=== PATIENT | female | born 1950 | race Caucasian/White ===

== ENCOUNTER 2018-09-21 07:18 | Observation (INO) | payer MEDICARE ==
[2018-09-21 07:41] LABS: ABSOLUTE EOSINOPHILS # (AUTO) 0.1 10^3/uL (0.0-0.6); ABSOLUTE LYMPHOCYTES (AUTO) 1.4 10^3/uL (0.5-4.7); ABSOLUTE MONOCYTES (AUTO) 0.8 10^3/uL (0.1-1.4); ABSOLUTE NEUT (AUTO) 5.5 10^3/uL (1.7-8.2); BASOPHILS % (AUTO) 0.3 % (0-2); EOSINOPHILS % (AUTO) 1.9 % (0-6); HEMOGLOBIN 13.9 g/dL (12.0-15.5); LYMPHOCYTES % (AUTO) 18.2 % (13-45); MEAN CORPUSCULAR HEMOGLOBIN 31.3 pg (27.0-33.4); MEAN CORPUSCULAR HGB CONC 33.8 g/dL (32.0-36.0); MEAN CORPUSCULAR VOLUME 93 fl (80-97); MONOCYTES % (AUTO) 9.7 % (3-13); PLATELET COUNT 192 10^3/uL (150-450); RED BLOOD COUNT 4.42 10^6/uL (3.72-5.28); RED CELL DISTRIBUTION WIDTH 14.3 % (11.5-14.0); SEGMENTED NEUTROPHILS % (AUTO) 69.9 % (42-78); TOTAL CELLS COUNTED % (AUTO) 100 %; WHITE BLOOD COUNT 7.8 10^3/uL (4.0-10.5)
[2018-09-21] MEDS ORDERED: NITROGLYCERIN 2% OINTMENT 1 GM PACKET TP ONE (07:42)
[2018-09-21] MEDS ORDERED: ONDANSETRON HCL INJ/PF 4 MG/2 ML SDV IV ONE (07:44)
[2018-09-21] MEDS ORDERED: MORPHINE SULFATE 10 MG/ML INJ IV ONE ×2 (07:44→08:23)
[2018-09-21 07:50] LABS: ALANINE AMINOTRANSFERASE 19 U/L (9-52); ALBUMIN 4.4 g/dL (3.5-5.0); ALKALINE PHOSPHATASE 88 U/L (38-126); ANION GAP 12 (5-19); ASPARTATE AMINO TRANSFERASE 37 U/L (14-36); BILIRUBIN,DIRECT 0.3 mg/dL (0.0-0.4); BILIRUBIN,TOTAL 0.6 mg/dL (0.2-1.3); BLOOD UREA NITROGEN 22 mg/dL (7-20); CALCIUM 9.2 mg/dL (8.4-10.2); CARBON DIOXIDE 28 mmol/L (22-30); CHLORIDE 103 mmol/L (98-107); CREATINE KINASE 100 U/L (30-135); GLUCOSE 94 mg/dL (75-110); POTASSIUM 4.8 mmol/L (3.6-5.0); SODIUM 143.4 mmol/L (137-145); TOTAL PROTEIN 7.5 g/dL (6.3-8.2)
--- NOTE | 2018-09-21 07:52 | RADIOLOGY REPORT (SQ) ---
EXAM DESCRIPTION: XR CHEST 1 VIEW COMPLETED DATE/TME: 09/21/2018 07:20 CLINICAL HISTORY: 67 years Female, bed 4 cp COMPARISON: None. NUMBER OF VIEWS/TECHNIQUE: 1/AP FINDINGS: Increased lung volume, clear parenchyma, normal cardiac silhouette, and intact bony thorax. IMPRESSION: No acute cardiopulmonary findings.
--- NOTE | 2018-09-21 07:54 | ER Document Report ---
ED Cardiac - General Chief Complaint: Chest Pain Stated Complaint: CHEST PAIN Time Seen by Provider: 09/21/18 07:28 Mode of Arrival: Medic Information source: Patient, Relative Notes: Patient is a 67-year-old female comes to the emergency room via EMS with a complaint of chest pain and shortness of breath. Patient states that last night when she went to bed she had a little discomfort in her chest but did not think much about it. Throughout the night chest pain/discomfort kept an uneasy feeling and progressed to where it went from a chest discomfort to a stabbing pain early this morning with radiation to her back and down her left arm. She attempted nitro sublingual x4 with no relief of chest pain but it did make her shortness of breath better. Pertinent recent history is that patient lives in [place] and they just drove down to [facility] on Wednesday of this past week. She states that they did get out of the car 3 or 4 times to walk around. Pertinent medical past is extensive for cardiac history to include 6 cardiac stent placements. Last stent placement was approximately 2009. Further interesting medical history shows that she has had a pulmonary embolism in her past. Per patient and the history of PE was many years ago where she had been on Coumadin for a long time and was taken off. They cannot remember exactly when but it was multiple years ago. states that she has had several episodes of this type of presentation in the past up in [place] and they can never find any cause with the exception of unstable angina. Currently patient has discomfort with movement. And she also has increased chest pain with movement. Currently on a 0-5 scale patient rates her pain as a 5. - HPI Patient complains to provider of: Chest pain, Shortness of breath Was the onset of pain: Gradual When did pain begin: Late last night Is the pain a: Chronic problem Chest pain location: Substernal, Back, Pleuritic Quality of pain: Constant, Severe, Stabbing Chest pain radiation location: Left arm, Left shoulder, Back Severity now: Severe Severity at worst: Severe Pain level currently: 5 Chest pain precipitating factors: At Rest Cardiac risk factors: Hypertension, Hx IA Positive cardiac history: Yes Associated symptoms: Back pain, Shortness of breath Exacerbated by: Sitting, Standing, Activity, Deep breaths, Torso movement Relieved by: Nothing Similar symptoms previously: Yes Recently seen / treated by doctor: No - Related Data Allergies/Adverse Reactions: No Known Allergies Allergy (Verified 09/21/18 07:45) Past Medical History - General Information source: Patient, Relative - Social History Smoking Status: Former Smoker Cigarette use (# per day): No Chew tobacco use (# tins/day): No Smoking Education Provided: No Frequency of alcohol use: None Drug Abuse: None Family History: None, Reviewed & Not Pertinent - Past Medical History Cardiac Medical History: Reports: Hx Heart Attack Past Surgical History: Reports: Hx Cardiac Surgery - 6 stents, Hx Orthopedic Surgery - r knee, Hx Tubal Ligation Review of Systems - Review of Systems Constitutional: No symptoms reported EENT: No symptoms reported Cardiovascular: See HPI, Chest pain Respiratory: See HPI, Hurts to breathe, Short of breath, Wheezing Gastrointestinal: No symptoms reported Genitourinary: No symptoms reported Female Genitourinary: No symptoms reported Musculoskeletal: No symptoms reported Skin: No symptoms reported Hematologic/Lymphatic: No symptoms reported Neurological/Psychological: No symptoms reported -: Yes All other systems reviewed and negative Physical Exam - Vital signs Vitals: Pulse Ox 97 09/21/18 07:20 Interpretation: Hypertensive - As of dictation vital signs had not been placed in computer yet but they are as follows temp 98.5, pulse of 80, blood pressure 149/81, and respiratory rate 14, satting 100% on room air. - Notes Notes: PHYSICAL EXAMINATION: GENERAL: Patient is a well-nourished well-developed 67-year-old female who appears very uncomfortable on physical exam today. She is having a hard time finding a position of comfort. Any movement causes increased amount of chest discomfort and pain. HEAD: Atraumatic, normocephalic. EYES: Pupils equal round and reactive to light, extraocular movements intact, conjunctiva are normal. ENT: Nares patent, oropharynx clear without exudates. Mucous membranes are marginally dry. NECK: Normal range of motion, supple without lymphadenopathy LUNGS: auscultation patient's lungs show she has bilateral breath sounds breath sounds are decreased throughout with right side being clear and left side having inspiratory wheeze noted very faintly. No rales or rhonchi are noted on examination. Palpation of patient's chest shows some mildly reproducible discomfort. Patient does not have any increase in pain or discomfort with resistance of upper extremities. HEART: Regular rate and rhythm without murmurs ABDOMEN: Soft, nontender, nondistended abdomen. No guarding, no rebound. No masses appreciated. Female : deferred Musculoskeletal: Normal range of motion, no pitting or edema. No cyanosis. NEUROLOGICAL: Normal speech. Normal sensory, motor exams, gait not tested secondary to the shortness of breath and discomfort PSYCH: Normal mood, normal affect. SKIN: Warm, Dry, normal turgor, no rashes or lesions noted. - Cardiovascular Rhythm: Regular Heart sounds: Normal auscultation Murmur: No Pulses: Normal: Brachial, Radial, Carotid, Femoral, Dorsalis pedis Normal capillary refill: Yes Course - Re-evaluation Re-evalutation: 09/21/18 11:28 Patient stated ER has been pretty much uneventful. We were able to get her pain level down to about a 3 with Nitropaste and with some morphine her CTA of the chest was negative for any acute problems her first troponin was negative and second troponin was just drawn. I have talked to Dr. Roa and he is excepted patient's for admission. - Vital Signs Vital signs: Temp Pulse Resp BP Pulse Ox 97.8 F 12 159/96 H 96 09/21/18 07:27 09/21/18 10:00 09/21/18 08:23 09/21/18 10:00 - Laboratory Result Diagrams: 09/21/18 07:27 09/21/18 07:27 Laboratory results interpreted by me: 09/21/18 09/21/18 09/21/18 07:27 07:27 07:27 RDW 14.3 H D-Dimer 0.91 H BUN 22 H AST 37 H Urine Blood 09/21/18 09:11 RDW D-Dimer BUN AST Urine Blood SMALL H - EKG Interpretation by Me Rate: Normal Rhythm: NSR When compared to previous EKG there are: No significant change - Transfer of Care Notes: 09/21/18 08:38 Patient's PERC score for PE is 2, patient's well score for PE is 9, patient's heart score is 5 Discharge - Discharge Clinical Impression: Chest pain Qualifiers: Chest pain type: unspecified Qualified Code(s): R07.9 - Chest pain, unspecified Condition: Stable Disposition: ADMITTED OBSERVATION Admitting Provider: Hospitalist Unit Admitted: Telemetry
[2018-09-21 08:01] LABS: CREATINE KINASE MB 1.43 ng/mL (<4.55)
[2018-09-21 08:02] LABS: TROPONIN I < 0.012 ng/mL
--- NOTE | 2018-09-21 08:15 | EKG REPORT ---
SEVERITY:- NORMAL ECG - SINUS RHYTHM : Confirmed by: Amber Mauro MD 21-Sep-2018 08:15:06
--- NOTE | 2018-09-21 09:33 | RADIOLOGY REPORT (SQ) ---
EXAM DESCRIPTION: CTA CHEST COMPLETED DATE/TIME: 09/21/2018 9:15 am REASON FOR STUDY: Positive d-dimer with a history of PE many years a COMPARISON: Chest film 09/21/2018, 01/25/2014, 09/19/2010 TECHNIQUE: CT scan of the chest performed using helical scanning technique with dynamic intravenous contrast injection. Images reviewed with lung, soft tissue and bone windows. Reconstructed coronal and sagittal MPR images reviewed. Additional 3 dimensional post-processing performed to develop Maximal Intensity Projection images (MO P). All images stored on PACS. All CT scanners at this facility use dose modulation, iterative reconstruction, and/or weight based d osing when appropriate to reduce radiation dose to as low as reasonably achievable (ALARA). [facility]: Dose Right [facility]: CareDose [facility]: Dose Right [facility]: Teradose 4D [facility]: UtiliData CONTRAST TYPE AND DOSE: contrast/concentration: Isovue 350.00 mg/ml; Total Contrast Delivered: 71.0 ml; Total Saline Delivered: 84.9 ml Contrast bolus optimized for the pulmonary arteries. Not diagnostic for the aorta. RENAL FUNCTION: GFR > 60. RADIATION DOSE: CT Rad equipment meets quality standard of care and radiation dose reduction techniq ues were employed. CTDIvol: 14.3 - 16.5 mGy. DLP: 530 mGy-cm. . LIMITATIONS: None. FINDINGS: LUNGS AND PLEURA: No acute infiltrates. No pleural effusion or pneumothorax. 5 to 6 mm s mooth round noncalcified subpleural nodule posterior left lower lobe likely a noncalcified granuloma, best shown on axial image 74/128. AORTA AND GREAT VESSELS: No aneurysm. Contrast bolus not optimized for the aorta. HEART: No pericardial effusion. Moderate to marked coronary artery calcifications. PULMONARY ARTERIES: No emboli visualized in the main pulmonary arteries or the segmental branches. HILAR AND MEDIASTINAL STRUCTURES: No identified masses or abnormal nodes. HARDWARE: None in the chest. UPPER ABDOMEN: No significant findings. Limited exam. THYROID AND OTHER SOFT TISSUES: No masses. No adenopathy. BONES: No acute or significant finding. 3D MIPS: Confirm above findings. OTHER: No other significant finding. IMPRESSION: No CT angio evidence of acute pulmonary emboli. No acute infiltrates. No pleural effus ion. Moderate to heavy coronary artery calcifications. Incidental 5 to 6 mm nodule posterior left lower lobe, likely benign COMMENT: FLEISCHNER CRITERIA FOR FOLLOW-UP OF PULMONARY NODULES Incidentally detected new nodules in persons 35 or older. HIGH RISK: History of smoking or other known risk factors. <6mm single solid nodule: LOW RISK: no routine followup. HIGH RISK: optional CT 12 mo. Quality ID # [id number]: Final reports with documentation of one or more dose reduction techniques (e.g., Au tomated exposure control, adjustment of the mA and/or kV according to patient size, use of iterative reconstruction technique) TECHNICAL DOCUMENTATION: JOB ID: [id number] [employer]- All Rights Reserved Reading location - IP/workstation name: [facility]
[2018-09-21 09:39] LABS: APPEARANCE,URINE CLEAR; BILIRUBIN,URINE NEGATIVE (NEGATIVE); COLOR,URINE YELLOW; GLUCOSE, URINE NEGATIVE (NEGATIVE); KETONES,URINE NEGATIVE (NEGATIVE); LEUKOCYTE ESTERASE,URINE NEGATIVE (NEGATIVE); NITRITE,URINE NEGATIVE (NEGATIVE); PROTEIN,URINE NEGATIVE (NEGATIVE); URINE SPECIFIC GRAVITY 1.027; UROBILINOGEN,URINE NEGATIVE mg/dL (<2.0)
[2018-09-21 10:11] LABS: URINE AMPHETAMINES SCREEN NEGATIVE; URINE BARBITURATES SCREEN NEGATIVE; URINE BENZODIAZEPINES SCREEN NEGATIVE; URINE COCAINE SCREEN NEGATIVE; URINE MARIJUANA (THC) SCREEN NEGATIVE; URINE METHADONE SCREEN NEGATIVE; URINE PHENCYCLIDINE SCREEN NEGATIVE
[2018-09-21] MEDS ORDERED: MORPHINE SULFATE 10 MG/ML INJ IV PRN ×2 (12:36→16:48)
[2018-09-21] MEDS ORDERED: TEMAZEPAM 15 MG CAPSULE PO PRN (12:36)
[2018-09-21] MEDS ORDERED: ALBUTEROL SULFATE HFA (90 MCG/PUFF) 200 PUFF/8.5 GM MDI IH PRN (12:54)
[2018-09-21] MEDS ORDERED: HYDROMORPHONE HCL INJ/PF 2 MG/ML AMPULE IV ONE (13:14)
--- NOTE | 2018-09-21 13:22 | PDOC H&P ---
History of Present Illness Admission Date/PCP: 09/21/18 12:17 Patient complains of: chest pain History of Present Illness: NORMAN VALDERRAMA is a 67 year old female came to the emergency room this morning, with complaints of chest pain since yesterday. Chest pain was mild yesterday patient tried to ignore it but today chest pain become unbearable and left-sided chest pain radiating to the back and left arm, also associated with shortness of breath and nausea patient decided to came to the emergency room for further evaluation. She is Describing the chest pain as stabbing pain. Has these episodes before. She had history of coronary artery disease with 6 stents placement last sent stent was placed in 2009 as per the patient. She is complaining of slight headache, denies any dizziness denies any sweating or diaphoresis. Patient said she got aspirin and nitroglycerin in the ambulance on the way to the hospital. Patient was given morphine for pain in the emergency room at the time of my examination patient is complaining of chest pain of 8 x 10. Past Medical History Cardiac Medical History: Reports: Coronary Artery Disease, Myocardial Infarction , Hyperlipidema, Hypertension, Pulmonary Embolism, Other - Patient has coronary artery disease with 6 stents placement last stent was EENT Medical History: Reports: Nose - Patient complaining of seasonal allergies with rhinorrhea. Neurological Medical History: Reports: None Endocrine Medical History: Reports: None Malignancy Medical History: Reports: None GI Medical History: Reports: Gastroesophageal Reflux Disease Psychiatric Medical History: Reports: Depression Hematology: Reports: Anemia Infectious Medical History: Reports: None Past Surgical History Past Surgical History: Reports: Hip Replacement, Knee Replacement, Orthopedic Surgery - r knee, Tubal Ligation Social History Smoking Status: Former Smoker Family History Family History: None, Reviewed & Not Pertinent, Other - with heart problems into the age of 50. Parental Family History Reviewed: Yes Children Family History Reviewed: No Sibling(s) Family History Reviewed.: No Medication/Allergy Home Medications: Albuterol Sulfate [Proair HFA Inhalation Aerosol 8.5 gm MDI] 2 puff IH Q4H PRN # 1 mdi 01/25/14 Aspirin [Aspirin 81 mg Chewable Tablet] 81 mg PO DAILY 01/25/14 Clopidogrel Bisulfate [Plavix 75 mg Tablet] 75 mg PO DAILY 01/25/14 Inhaler, Assist Devices [AerHipClubamber Mv] 1 each MC ASDIR PRN #0 inhaler Metoprolol Succinate [Toprol Xl] 50 mg PO DAILY 01/25/14 Multivitamin [Multi Vitamin Daily] 1 each PO DAILY 01/25/14 Rosuvastatin Calcium [Crestor 20 mg Tablet] 20 mg PO HSP 01/25/14 Duloxetine HCl 60 mg PO 09/21/18 Isosorbide Mononitrate [Imdur 30 mg Tablet.er] 30 mg PO 09/21/18 Lisinopril [Prinivil 5 mg Tablet] 5 mg PO DAILY 09/21/18 Pantoprazole Sodium [Protonix] 40 mg PO HSP PRN 09/21/18 Potassium Chloride [K-Tab ER] 8 meq PO 09/21/18 Allergies/Adverse Reactions: No Known Allergies Allergy (Verified 09/21/18 07:45) Review of Systems Constitutional: ABSENT: chills, fever(s), headache(s), weight gain, weight loss Cardiovascular: PRESENT: chest pain Respiratory: PRESENT: other - Shortness of breath during the episode of chest pain Gastrointestinal: PRESENT: heartburn Genitourinary: ABSENT: dysuria, hematuria Musculoskeletal: ABSENT: joint swelling Neurological: ABSENT: abnormal gait, abnormal speech, confusion, dizziness, focal weakness, syncope Psychiatric: ABSENT: anxiety, depression, homidical ideation, suicidal ideation Endocrine: ABSENT: cold intolerance, heat intolerance, polydipsia, polyuria Hematologic/Lymphatic: ABSENT: easy bleeding, easy bruising Physical Exam Vital Signs: Temp Pulse Resp BP Pulse Ox 97.8 F 17 133/118 H 96 09/21/18 07:27 09/21/18 12:01 09/21/18 12:01 09/21/18 12:01 General appearance: PRESENT: severe distress Head exam: PRESENT: atraumatic Eye exam: PRESENT: PERRLA Neck exam: ABSENT: carotid bruit, JVD, lymphadenopathy, thyromegaly Respiratory exam: PRESENT: clear to auscultation ashley. ABSENT: rales, rhonchi, wheezes Cardiovascular exam: PRESENT: RRR. ABSENT: diastolic murmur, rubs, systolic murmur Pulses: PRESENT: normal dorsalis pedis pul GI/Abdominal exam: PRESENT: normal bowel sounds, soft. ABSENT: distended, guarding, mass, organolmegaly, rebound, tenderness Neurological exam: PRESENT: alert, awake, oriented to person, oriented to place , oriented to time, oriented to situation, CN II-XII grossly intact. ABSENT: motor sensory deficit Psychiatric exam: PRESENT: appropriate affect, normal mood. ABSENT: homicidal ideation, suicidal ideation Skin exam: PRESENT: dry, intact, warm. ABSENT: cyanosis, rash Results Impressions: Chest X-Ray 09/21/18 07:20 IMPRESSION: No acute cardiopulmonary findings. Chest/Abdomen CTA 09/21/18 08:40 IMPRESSION: No CT angio evidence of acute pulmonary emboli. No acute infiltrates. No pleural effusion. Moderate to heavy coronary artery calcifications. Incidental 5 to 6 mm nodule posterior left lower lobe, likely benign Assessment & Plan - Diagnosis (1) Chest pain Qualifiers: Chest pain type: unspecified Qualified Code(s): R07.9 - Chest pain, unspecified Is this a current diagnosis for this admission?: Yes Plan: 09/21/2018 from she has history of coronary artery disease with 6 stent placements came in with chest pain. Initial EKG troponins are negative. He is in considerable pain. We will do cardiac enzymes x3 along with EKGs and acute HI core measures were implemented she is also going to receive morphine 1 mg IV every 4 as needed for pain. He is she is on prophylaxis with Lovenox 40 mg subcu daily. Echocardiogram was requested. Allergy consult was requested. The lipid profile was ordered for morning. PRN nitroglycerin was ordered for chest pain. Tarted on aspirin 325 mg p.o. daily. I reviewed the current EKG which was normal sinus rhythm. Patient was started on oxygen 2 L nasal cannula. Patient was started on atorvastatin 10 mg p.o. nightly as part of acute HI core measures. Patient was placed in observation and telemetry be going to continue to monitor her cardiac rhythm and if the cardiac enzymes are negative and EKG was normal we have plans to discharge her home tomorrow. (2) Presence of stent in coronary artery in patient with coronary artery disease Is this a current diagnosis for this admission?: Yes Plan: 09/21/2018-patient has history of coronary artery disease status post stent placement last had stent was placed in 2009. Patient was on Plavix at home we have plan to continue the Plavix while she was in the hospital (3) Pulmonary embolism Is this a current diagnosis for this admission?: Yes Plan: 09/21/2018-patient has history of pulmonary embolism in the past. Not on any anticoagulation at this time except Plavix. The CT of the chest was done in the ER which was negative for PE. (4) Depression Qualifiers: Depression Type: unspecified Qualified Code(s): F32.9 - Major depressive disorder, single episode, unspecified Is this a current diagnosis for this admission?: Yes Plan: 11/21/2017-patient has history of chronic depression, she is on duloxetine 60 mg p.o. daily at home we have the plan is to continue the medication while she was in the hospital. (5) Hypertension Qualifiers: Hypertension type: essential hypertension Qualified Code(s): I10 - Essential (primary) hypertension Is this a current diagnosis for this admission?: Yes Plan: 09/21/2018.. Patient is taking lisinopril 5 mg p.o. daily and metoprolol 50 mg p.o. daily at home we how to continue with plans to continue the present medication while she was in the hospital. (6) GERD (gastroesophageal reflux disease) Qualifiers: Esophagitis presence: esophagitis presence not specified Qualified Code(s) : K21.9 - Gastro-esophageal reflux disease without esophagitis Is this a current diagnosis for this admission?: Yes Plan: 09/21/2018-patient was placed on famotidine 20 mg p.o. daily while she was in the hospital. - Time Time Spent: 30 to 50 Minutes Medications reviewed and adjusted accordingly: Yes Anticipated discharge: Home
[2018-09-21] MEDS ORDERED: ISOSORBIDE MONONITRATE 30 MG TAB.ER.24H PO ONE (13:45)
[2018-09-21] MEDS ORDERED: ENOXAPARIN SODIUM INJ 40 MG/0.4 ML DISP.SYRIN SUBCUT ONE (14:00)
[2018-09-21] MEDS: NITROGLYCERIN 0.4 MG/TAB 25 TAB/BOTTLE SL PRN ×3 (14:18→16:07)
[2018-09-21] MEDS ORDERED: METOPROLOL SUCCINATE 50 MG TAB.SR.24H PO ONE (15:15)
[2018-09-21] MEDS ORDERED: DULOXETINE HCL 30 MG CAPSULE.DR PO ONE (15:15)
[2018-09-21] MEDS ORDERED: CLOPIDOGREL BISULFATE 75 MG TABLET PO ONE (15:15)
[2018-09-21] MEDS ORDERED: LISINOPRIL 5 MG TABLET PO ONE (15:15)
[2018-09-21] MEDS ORDERED: ASPIRIN 325 MG TABLET, ENT COATED PO ONE (15:15)
--- NOTE | 2018-09-21 15:43 | EKG REPORT ---
SEVERITY:- NORMAL ECG - SINUS RHYTHM : Confirmed by: Amber Mauro MD 21-Sep-2018 15:43:28
--- NOTE | 2018-09-21 16:54 | XCELERA REPORT ---
[address] [address] Transthoracic Echocardiogram Report Name: NORMAN VALDERRAMA Age: 67 yrs Gender: Female : 1950 Patient Status: Inpatient Patient Location: [address] [place], [place] [address] Study Date: 09/21/2018 03:29 PM Procedure: A two-dimensional transthoracic echocardiogram with color flow and Doppler was performed. The study was technically difficult with many images being suboptimal in quality. The study was technically limited with all images being suboptimal in quality. Reason For Study: LV Function, size, wall thickness,Valve Function History: Chest pain. Ordering Physician: WILLIAN ABRAHAM Performed By: Zenobia Hwang Interpretation Summary The left ventricle is normal in size. There is normal left ventricular wall thickness. LV EF is > than 60% Left ventricular systolic function is normal. Doppler measurements suggest impaired left ventricular relaxation, which is associated with grade I/IV or mild diastolic dysfunction Probably nodefenite regional wall motion abnormality. There is no thrombus. The right ventricle is not well visualized secondary to technical limitations The right atrium is normal. The left atrial size is normal. There is no mitral valve stenosis. There is a mild to moderate amount of tricuspid regurgitation There is mild pulmonary hypertension by echo RVSP is 45 mm of Hg , with RA mean of 10. There is no pericardial effusion. MMode/2D Measurements & Calculations IVSd: 0.67 cm LVIDd: 5.7 cm FS: 37.2 % Ao root diam: 2.6 cm LVIDs: 3.6 cm EDV(Teich): 157.1 ml Ao root area: 5.2 cm2 LVPWd: 0.83 cm ESV(Teich): 52.7 ml EF(Teich): 66.4 % Doppler Measurements & Calculations MV E max hiren: MV dec slope: Ao V2 max: LV V1 max P.4 cm/sec 175.6 cm/sec 4.4 mmHg MV A max hiren: 352.3 cm/sec2 Ao max PG: LV V1 max: 86.5 cm/sec MV dec time: 0.21 sec12.3 mmHg 104.3 cm/sec MV E/A: 0.86 PA V2 max: TR max hiren: 104.2 cm/sec 296.7 cm/sec PA max P.3 mmHg TR max P.2 mmHg Left Ventricle The left ventricle is normal in size. There is normal left ventricular wall thickness. LV EF is > than 60%. Left ventricular systolic function is normal. Doppler measurements suggest impaired left ventricular relaxation, which is associated with grade I/IV or mild diastolic dysfunction. Probably nodefenite regional wall motion abnormality. There is no thrombus. Right Ventricle The right ventricle is not well visualized secondary to technical limitations. Atria The right atrium is normal. The left atrial size is normal. Mitral Valve The mitral valve is not well visualized. There is no mitral valve stenosis. There is no mitral regurgitation noted. Aortic Valve There is no aortic valve stenosis. There is no LVOT obstruction. No aortic regurgitation is present. Tricuspid Valve There is no tricuspid stenosis. There is a mild to moderate amount of tricuspid regurgitation. There is mild pulmonary hypertension by echo. RVSP is 45 mm of Hg , with RA mean of 10. Pulmonic Valve The pulmonic valve is not well visualized. Great Vessels The aortic root is not well visualized. Effusions There is no pericardial effusion. : WILLIAN ABRAHAM > Amber Mauro
[2018-09-21] MEDS: DOCUSATE SODIUM 100 MG CAPSULE PO SCH (17:08)
[2018-09-21] MEDS ORDERED: FAMOTIDINE 20 MG TABLET PO ONE (17:15)
[2018-09-21] MEDS ORDERED: LORAZEPAM INJ 2 MG/1 ML VIAL IV PRN (17:42)
[2018-09-21] MEDS ORDERED: METOCLOPRAMIDE HCL ORAL SOLN 10 MG/10 ML UDCUP PO PRN (17:43)
[2018-09-21] MEDS ORDERED: LIDOCAINE 2% VISCOUS SOLN 20 ML UDCUP PO PRN (17:43)
[2018-09-21] MEDS ORDERED: MAG HYDROX/AL HYDROX/SIMETH SUSP 30 ML UDCUP PO PRN (17:43)
[2018-09-21] MEDS ORDERED: BACLOFEN 10 MG TABLET PO PRN (17:44)
[2018-09-21] MEDS ORDERED: IBUPROFEN 400 MG TABLET PO PRN (17:44)
[2018-09-21 18:38] LABS: CREATINE KINASE MB 1.08 ng/mL (<4.55)
[2018-09-21 18:43] LABS: TROPONIN I < 0.012 ng/mL
[2018-09-21] MEDS ORDERED: ENOXAPARIN SODIUM INJ 80 MG/0.8 ML DISP.SYRIN SUBCUT SCH (19:00)
[2018-09-21] MEDS: FAMOTIDINE 20 MG TABLET PO SCH (21:58)
[2018-09-21] MEDS: POTASSIUM CHLORIDE 20 MEQ/15 ML UDCUP PO SCH (21:59)
[2018-09-21] MEDS: ENOXAPARIN SODIUM INJ 80 MG/0.8 ML DISP.SYRIN SUBCUT SCH (21:59)
[2018-09-21] MEDS ORDERED: ATORVASTATIN CALCIUM 10 MG TABLET PO SCH (22:00)
[2018-09-22 00:30] LABS: CREATINE KINASE MB 0.62 ng/mL (<4.55)
[2018-09-22] MEDS ORDERED: NORMAL SALINE 1000 ML 1,000 ML IV ONE ×2 (00:30→02:00)
[2018-09-22 00:33] LABS: TROPONIN I < 0.012 ng/mL
[2018-09-22 06:57] LABS: ABSOLUTE EOSINOPHILS # (AUTO) 0.1 10^3/uL (0.0-0.6); ABSOLUTE LYMPHOCYTES (AUTO) 1.1 10^3/uL (0.5-4.7); ABSOLUTE MONOCYTES (AUTO) 0.9 10^3/uL (0.1-1.4); ABSOLUTE NEUT (AUTO) 4.3 10^3/uL (1.7-8.2); BASOPHILS % (AUTO) 0.2 % (0-2); EOSINOPHILS % (AUTO) 1.6 % (0-6); HEMATOCRIT 34.6 % (36.0-47.0); LYMPHOCYTES % (AUTO) 17.3 % (13-45); MEAN CORPUSCULAR HEMOGLOBIN 31.2 pg (27.0-33.4); MEAN CORPUSCULAR HGB CONC 33.7 g/dL (32.0-36.0); MEAN CORPUSCULAR VOLUME 93 fl (80-97); MONOCYTES % (AUTO) 14.3 % (3-13); PLATELET COUNT 163 10^3/uL (150-450); RED BLOOD COUNT 3.73 10^6/uL (3.72-5.28); RED CELL DISTRIBUTION WIDTH 14.3 % (11.5-14.0); SEGMENTED NEUTROPHILS % (AUTO) 66.6 % (42-78); TOTAL CELLS COUNTED % (AUTO) 100 %; WHITE BLOOD COUNT 6.4 10^3/uL (4.0-10.5)
[2018-09-22 06:58] LABS: HEMOGLOBIN 11.6 g/dL (12.0-15.5)
[2018-09-22 07:10] LABS: CHOLESTEROL 101.52 mg/dL (0-200); TRIGLYCERIDES 99 mg/dL (<150)
[2018-09-22 07:21] LABS: DIRECT LDL 55 mg/dL (<100)
[2018-09-22 07:22] LABS: CREATINE KINASE MB 0.52 ng/mL (<4.55)
[2018-09-22 07:27] LABS: TROPONIN I < 0.012 ng/mL
[2018-09-22 09:17] VITALS: BP 96/55
[2018-09-22] MEDS: DOCUSATE SODIUM 100 MG CAPSULE PO SCH (09:26)
[2018-09-22] MEDS: FAMOTIDINE 20 MG TABLET PO SCH (09:26)
[2018-09-22] MEDS: POTASSIUM CHLORIDE 20 MEQ/15 ML UDCUP PO SCH (09:27)
[2018-09-22] MEDS: ENOXAPARIN SODIUM INJ 80 MG/0.8 ML DISP.SYRIN SUBCUT SCH (09:29)
--- NOTE | 2018-09-22 09:37 | EKG REPORT ---
SEVERITY:- NORMAL ECG - SINUS RHYTHM : Confirmed by: Amber Mauro MD 22-Sep-2018 09:36:57
--- NOTE | 2018-09-22 09:38 | EKG REPORT ---
SEVERITY:- NORMAL ECG - SINUS RHYTHM : Confirmed by: Amber Mauro MD 22-Sep-2018 09:37:03
[2018-09-22] MEDS ORDERED: MULTIVITAMIN TABLET PO SCH (10:00)
[2018-09-22] MEDS ORDERED: DULOXETINE HCL 30 MG CAPSULE.DR PO SCH (10:00)
[2018-09-22] MEDS ORDERED: ENOXAPARIN SODIUM INJ 40 MG/0.4 ML DISP.SYRIN SUBCUT SCH (10:00)
[2018-09-22] MEDS ORDERED: METOPROLOL SUCCINATE 50 MG TAB.SR.24H PO SCH (10:00)
[2018-09-22] MEDS ORDERED: LISINOPRIL 5 MG TABLET PO SCH ×2 (10:00→11:29)
[2018-09-22] MEDS ORDERED: CLOPIDOGREL BISULFATE 75 MG TABLET PO SCH (10:00)
[2018-09-22] MEDS ORDERED: ASPIRIN 325 MG TABLET, ENT COATED PO SCH (10:00)
--- NOTE | 2018-09-22 13:07 | PDOC DISCHARGE SUMMARY ---
General - Admit/Disc Date/PCP Admission Date/Primary Care Provider: 09/21/18 12:17 Discharge Date: 09/22/18 - Discharge Diagnosis (1) Atypical chest pain Is this a current diagnosis for this admission?: Yes Summary: Has strong cardiac history with 6 stents; workup here was negative troponins * 5. EKG was negative for acute abnormality. - Pain better controlled with morphine. - On day of discharge, patient states CP resolved. - TTE: preserved EF - Seen by cardiology today (Dr. 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 Not on AC; only Plavix - CTA chest this admission was negative for PE. - Additional Information Resuscitation Status: Full Code Discharge Diet: Cardiac Discharge Activity: Activity As Tolerated Prescriptions: Isosorbide Mononitrate [Imdur 30 mg Tablet.er] 60 mg PO DAILY #60 tab.er.24h Home Medications: Albuterol Sulfate [Proair HFA Inhalation Aerosol 8.5 gm MDI] 2 puff IH Q4H PRN # 1 mdi 01/25/14 Clopidogrel Bisulfate [Plavix 75 mg Tablet] 75 mg PO DAILY 01/25/14 Metoprolol Succinate [Toprol Xl] 50 mg PO DAILY 01/25/14 Rosuvastatin Calcium [Crestor 20 mg Tablet] 20 mg PO HSP 01/25/14 Duloxetine HCl 60 mg PO DAILY 09/21/18 Lisinopril [Prinivil 5 mg Tablet] 5 mg PO DAILY 09/21/18 Pantoprazole Sodium [Protonix] 40 mg PO HSP PRN 09/21/18 Potassium Chloride [K-Tab ER] 8 meq PO DAILY 09/21/18 Isosorbide Mononitrate [Imdur 30 mg Tablet.er] 60 mg PO DAILY #60 tab.er.24h History of Present Illness Patient complains of: chest pain History of Present Illness: NORMAN VALDERRAMA is a 67 year old female who presented to the ED with one day history of chest pain since 09/20/18. Described as mild initially but became unbearable and left-sided chest pain radiating to the back and left arm, also associated with shortness of breath and nausea patient decided to came to the emergency room for further evaluation. She is Describing the chest pain as stabbing pain. Has these episodes before. She had history of coronary artery disease with 6 stents placement last sent stent was placed in 2009 as per the patient. She is complaining of slight headache, denies any dizziness denies any sweating or diaphoresis. Patient said she got aspirin and nitroglycerin in the ambulance on the way to the hospital. Patient was given morphine for pain in the emergency room at the time of my examination patient is complaining of chest pain of 8 x 10. Admitted to hospitalist service. Physical Exam Vital Signs: Temp Pulse Resp BP Pulse Ox 97.5 F 63 14 96/55 L 98 09/22/18 08:32 09/22/18 08:32 09/22/18 08:32 09/22/18 08:32 09/22/18 08:32 Intake & Output 09/21/18 09/22/18 09/23/18 06:59 06:59 06:59 Intake Total 2590 Balance 2590 Weight 74.4 kg General appearance: PRESENT: no acute distress, cooperative Head exam: PRESENT: atraumatic Mouth exam: PRESENT: moist Respiratory exam: PRESENT: unlabored. ABSENT: chest wall tenderness, wheezes Cardiovascular exam: PRESENT: +S1, +S2. ABSENT: tachycardia GI/Abdominal exam: PRESENT: soft. ABSENT: tenderness Extremities exam: PRESENT: full ROM Neurological exam: PRESENT: alert, awake, CN II-XII grossly intact Psychiatric exam: PRESENT: appropriate affect Skin exam: PRESENT: dry Results Laboratory Results: 09/22/18 06:20 09/22/18 09/22/18 06:20 06:20 WBC 6.4 RBC 3.73 Hgb 11.6 L D Hct 34.6 L MCV 93 MCH 31.2 MCHC 33.7 RDW 14.3 H Plt Count 163 Seg Neutrophils % 66.6 Lymphocytes % 17.3 Monocytes % 14.3 H Eosinophils % 1.6 Basophils % 0.2 Absolute Neutrophils 4.3 Absolute Lymphocytes 1.1 Absolute Monocytes 0.9 Absolute Eosinophils 0.1 Absolute Basophils 0.0 Triglycerides 99 Cholesterol 101.52 LDL Cholesterol Direct 55 VLDL Cholesterol 20.0 HDL Cholesterol 37 L 09/21/18 09/21/18 09/22/18 17:39 23:48 06:20 CK-MB (CK-2) 1.08 0.62 0.52 Troponin I < 0.012 < 0.012 < 0.012 Impressions: Chest X-Ray 09/21/18 07:20 IMPRESSION: No acute cardiopulmonary findings. Chest/Abdomen CTA 09/21/18 08:40 IMPRESSION: No CT angio evidence of acute pulmonary emboli. No acute infiltrates. No pleural effusion. Moderate to heavy coronary artery calcifications. Incidental 5 to 6 mm nodule posterior left lower lobe, likely benign Qualifiers - * PATIENT BEING DISCHARGED WITH ANY OF THE FOLLOWING DIAGNOSIS: No Plan Time Spent: Less than 30 Minutes
--- NOTE | 2018-09-22 20:16 | PDOC CONSULTATION ---
Consultation-Blank Consultation: CARDIOLOGY CONSULTATION by Dr. Amber Mauro on 09/22/2018. Patient seen at 12:30 PM. 60 minutes spent on this patient more than 50% of time spent in direct patient care. REASON FOR CONSULTATION: Patient with history of coronary artery disease, history of prior coronary stent, admitted with chest pains. HISTORY OF PRESENT ILLNESS: Patient is 67-year-old female, with known history of hypertension, hyperlipidemia, past history of pulmonary embolism with a mild with no recurrence, and history of coronary artery disease, history of old myocardial infarction, and history of stent placement in unknown vessel in the coronary arterial system states since 09/20/18 she has been having left front of chest pain. The pain is not increased with exertion. Is constant associated with nausea and some diaphoresis. She states that any movement of the chest area like turning her torso increases the pain. Also that area was tender to touch. Is clearly noncardiac. Her symptoms of chest pain now a much different from the symptoms that led to her having a myocardial infarction in the past. She denies any palpitations. There is no shortness of breath. There is no PND orthopnea. There is no leg edema. There is no dizziness, near syncope or syncope. There is no TIA or CVA symptoms. Note that the patient's serial EKG x2 is within normal limits. And a troponin I entered for negative for an acute coronary event. PAST MEDICAL HISTORY: History of hypertension. History of coronary artery disease, history of myocardial infarction, and history of stent placement 2009. He does not given the patient had last had a stress test. Chest wall pain as mentioned earlier. No prior history of costochondritis. She has a history of hyperlipidemia. There is no history of congestive heart failure. No history of cardiac arrhythmia. She has no history of diabetes mellitus. No history of thyroid disease. She does have a mild COPD. No history of asthma. No history of sleep apnea. History of pulmonary embolism in the past. The patient's d- dimer was elevated this admission, and a pulmonary CT angiogram did not show any recurrence of pulmonary emboli. She has no history of chronic kidney disease. There is no history of thyroid disease. PAST SURGICAL HISTORY: She has had a right hip replacement. Tubal ligation. And bilateral knee replacements. ALLERGIES: The patient has no known allergies. SOCIAL HISTORY she is a non-smoker. There is no CVG H abuse. FAMILY HISTORY: The patient's son has decreased HDL levels. There is history of coronary disease in the family. DISPOSITION: The patient is a full code. Her is surrogate healthcare decision maker. REVIEW OF SYSTEMS: HEAD: No history of headaches or head injury. EYES: No history of amlodipine diplopia. No history of amaurosis fugax. EARS: No hearing loss. No tinnitus. No recurrent ear infections. NOSE: No history of hayfever no history of nosebleeds. No history of nasal polyps. MOUTH: No altered taste sensation. No ulcers in the mouth. No bleeding from the gums. THROAT: No odynophagia or dysphagia. No recurrent sore throats. SKIN: No pruritus. No yellowish discoloration of the skin. No psoriasis. No history of eczema. NECK: No history of neck pain. No swelling in the neck. No goiter. LUNGS: No history of symptoms of acute exacerbation of COPD. No cough or sputum production. No wheezing. No history of sleep apnea. Past history of pulmonary embolism. With no recurrence. No history of pleuritic chest pain. No history of hemoptysis. No symptoms of upper or lower respiratory tract infection. HEART: Past history of OR. Noncardiac chest pain as mentioned area. History of stent in an unknown vessel. History of hypertension present history of hyperlipidemia and also low HDL levels. No history of heart failure. No history of arrhythmias. No PND orthopnea leg edema. GI: No history of GI bleed. No history of hepatitis. No fatty food intolerance. No history of altered bowel movements. No abdominal pain. No history of jaundice. No cervicitis. RENAL: No symptoms of UTI. No hematuria pyuria or dysuria. No history of chronic kidney disease. MUSCULOSKELETAL: Denies history of arthritis or collagen vascular disease. ENDOCRINE: No history of diabetes mellitus. No history of thyroid disease. No history of polydipsia polyuria. No history of heat or cold intolerance. ROLL WRAPPER: No history of TIA or CVA. No history of headaches migraines or seizures. NO HISTORY OF GAIT IMBALANCE. Psychiatric: No history of anxiety or depression. No history of suicidal ideation. No history of homicidal ideation. VASCULAR: No history of calf or buttock claudication. NO HISTORY OF DVT. Hematological: No history of bleeding diathesis. No history of clotting disorders. No history of blood dyscrasias. PHYSICAL EXAMINATION: The patient is well-built and well-nourished. She is well -groomed. At present in no acute distress. She has no chest wall pain at present. She states that this is resolved 09/22/18 09/22/18 10:00 12:57 Temperature 97.5 F Pulse Rate 63 Respiratory 14 Rate Blood Pressure 96/55 L [Right Upper Arm] O2 Sat by Pulse 98 Oximetry Oxygen Flow 1 Rate Percent of 99 Oxygen Head: Head is atraumatic normocephalic. EYES: Pupils are equal round regular react to light accommodation. Extraocular movements are normal. There is no clinical pallor there is no scleral icterus. EARS: Tympanic membranes are intact. External auditory canals are clear. NOSE: No deviated nasal septum. No inflammation of the nasal mucous membrane. MOUTH: Mucous membranes of mouth are moist. Tongue is moist. There is no ulcers or bleeding from the gums. THROAT: There is no exudates of the throat. There is no redness of the oropharynx. SKIN: There is no petechia or ecchymosis. There is no skin lesions or skin rashes. NECK: Neck is supple. There is no JVD. Carotids are equal there is no bruit. There is no lymphadenopathy. There is no goiter. There is no accessory muscles of respiration in use. Trachea central. LUNGS: There is slightly diminished air entry and prolonged expiration. Air entry seems to be reasonable for a poor patient with he diagnosis of COPD. There is no rhonchi rales or wheezing. HEART: S1-S2 is heard there is no S3 gallop. There is no S4 gallop. There is systolic murmur left sternal border and apex there is no rub. ABDOMEN: Is soft. Nontender. There is no hepatosplenic megaly. Bowel sounds are well heard. There is no rebound guarding or rigidity. EXTREMITIES: Femorals are well felt there is no femoral bruits. Leg pulses well felt. There is no pedal edema. There is no DVT or cellulitis. There is no calf tenderness. There is no cyanosis or clubbing. Capillary refill is normal. ROLL WRAPPER: Patient is awake alert oriented x3 with no focal deficits. PSYCHIATRIC: The patient judgment and insight are intact. Affect is normal. 09/21/18 09/21/18 09/21/18 07:27 07:27 07:27 WBC Hgb Hct Plt Count D-Dimer 0.91 H Sodium 143.4 Potassium 4.8 Chloride 103 Carbon Dioxide 28 Anion Gap 12 BUN 22 H Creatinine 0.85 Est GFR (Non-Af Amer) > 60 Glucose 94 Calcium 9.2 Total Bilirubin 0.6 Direct Bilirubin 0.3 Neonat Total Bilirubin Not Reportable Neonat Direct Bilirubin Not Reportable Neonat Indirect Bili Not Reportable AST 37 H ALT 19 Alkaline Phosphatase 88 Creatine Kinase 100 CK-MB (CK-2) 1.43 Troponin I < 0.012 Total Protein 7.5 Albumin 4.4 Triglycerides Cholesterol LDL Cholesterol Direct VLDL Cholesterol HDL Cholesterol Urine Opiates Screen Urine Methadone Screen Ur Barbiturates Screen Ur Phencyclidine Scrn Ur Amphetamines Screen U Benzodiazepines Scrn Urine Cocaine Screen U Marijuana (THC) Screen 09/21/18 09/21/18 09/21/18 09:11 11:39 17:39 WBC Hgb Hct Plt Count D-Dimer Sodium Potassium Chloride Carbon Dioxide Anion Gap BUN Creatinine Est GFR (Non-Af Amer) Glucose Calcium Total Bilirubin Direct Bilirubin Neonat Total Bilirubin Neonat Direct Bilirubin Neonat Indirect Bili AST ALT Alkaline Phosphatase Creatine Kinase CK-MB (CK-2) 1.08 Troponin I < 0.012 < 0.012 Total Protein Albumin Triglycerides Cholesterol LDL Cholesterol Direct VLDL Cholesterol HDL Cholesterol Urine Opiates Screen UNCONFIRMED POSITIVE Urine Methadone Screen NEGATIVE Ur Barbiturates Screen NEGATIVE Ur Phencyclidine Scrn NEGATIVE Ur Amphetamines Screen NEGATIVE U Benzodiazepines Scrn NEGATIVE Urine Cocaine Screen NEGATIVE U Marijuana (THC) Screen NEGATIVE 09/21/18 09/22/18 09/22/18 23:48 06:20 06:20 WBC 6.4 Hgb 11.6 L D Hct 34.6 L Plt Count 163 D-Dimer Sodium Potassium Chloride Carbon Dioxide Anion Gap BUN Creatinine Est GFR (Non-Af Amer) Glucose Calcium Total Bilirubin Direct Bilirubin Neonat Total Bilirubin Neonat Direct Bilirubin Neonat Indirect Bili AST ALT Alkaline Phosphatase Creatine Kinase CK-MB (CK-2) 0.62 0.52 Troponin I < 0.012 < 0.012 Total Protein Albumin Triglycerides Cholesterol LDL Cholesterol Direct VLDL Cholesterol HDL Cholesterol Urine Opiates Screen Urine Methadone Screen Ur Barbiturates Screen Ur Phencyclidine Scrn Ur Amphetamines Screen U Benzodiazepines Scrn Urine Cocaine Screen U Marijuana (THC) Screen 09/22/18 06:20 WBC Hgb Hct Plt Count D-Dimer Sodium Potassium Chloride Carbon Dioxide Anion Gap BUN Creatinine Est GFR (Non-Af Amer) Glucose Calcium Total Bilirubin Direct Bilirubin Neonat Total Bilirubin Neonat Direct Bilirubin Neonat Indirect Bili AST ALT Alkaline Phosphatase Creatine Kinase CK-MB (CK-2) Troponin I Total Protein Albumin Triglycerides 99 Cholesterol 101.52 LDL Cholesterol Direct 55 VLDL Cholesterol 20.0 HDL Cholesterol 37 L Urine Opiates Screen Urine Methadone Screen Ur Barbiturates Screen Ur Phencyclidine Scrn Ur Amphetamines Screen U Benzodiazepines Scrn Urine Cocaine Screen U Marijuana (THC) Screen Home Meds Table Albuterol Sulfate [Proair HFA Inhalation Aerosol 8.5 gm MDI] 2 puff IH Q4H PRN #1 mdi 01/25/14 Clopidogrel Bisulfate [Plavix 75 mg Tablet] 75 mg PO DAILY 01/25/14 Metoprolol Succinate [Toprol Xl] 50 mg PO DAILY 01/25/14 Rosuvastatin Calcium [Crestor 20 mg Tablet] 20 mg PO HSP 01/25/14 Duloxetine HCl 60 mg PO DAILY 09/21/18 Lisinopril [Prinivil 5 mg Tablet] 5 mg PO DAILY 09/21/18 Pantoprazole Sodium [Protonix] 40 mg PO HSP PRN 09/21/18 Potassium Chloride [K-Tab ER] 8 meq PO DAILY 09/21/18 Isosorbide Mononitrate [Imdur 30 mg Tablet.er] 60 mg PO DAILY #60 tab.er.24h 09/22/18 09/21/18 07:42 Nitroglycerin [Nitrol 2% Ointment 1Gm Packet] 1 gm TP NOW ONE 09/21/18 07:44 Morphine Sulfate [Morphine 10 mg/ml Inj] 2 mg IV NOW ONE Ondansetron HCl/Pf [Zofran Inj/Pf 4 mg/2 ml Sdv] 4 mg IV NOW ONE 09/21/18 08:23 Morphine Sulfate [Morphine 10 mg/ml Inj] 4 mg IV NOW ONE 09/21/18 13:14 Hydromorphone HCl/Pf [Dilaudid Inj/Pf 2 mg/ml Ampule] 0.5 mg IV NOW ONE 09/21/18 13:45 Isosorbide Mononitrate [Imdur 30 mg Tablet.er] 30 mg PO NOW ONE 09/21/18 14:00 Enoxaparin Sodium [Lovenox Inj 40 mg/0.4 ml Disp.syrin] 40 mg SUBCUT NOW ONE 09/21/18 15:15 Aspirin [Ecotrin 325 mg EC Tablet] 325 mg PO NOW ONE Clopidogrel Bisulfate [Plavix 75 mg Tablet] 75 mg PO NOW ONE Duloxetine HCl [Cymbalta 30 mg Capsule.dr] 60 mg PO NOW ONE Lisinopril [Prinivil 5 mg Tablet] 5 mg PO NOW ONE Metoprolol Succinate [Toprol Xl 50 mg Tab.sr] 50 mg PO NOW ONE 09/21/18 17:15 Famotidine [Pepcid 20 mg Tablet] 20 mg PO NOW ONE 09/22/18 00:30 Normal Saline 1000 ml [NaCl 0.9% 1000 ml IV Soln] 1,000 ml IV X 1 BAG 09/22/18 02:00 Normal Saline 1000 ml [NaCl 0.9% 1000 ml IV Soln] 1,000 ml IV X 1 BAG EKG x2: Shows sinus rhythm within normal limits. Her chest x-ray is negative. A pulmonary CT angiogram is negative for any pulmonary embolism. There is no acute infiltrates. Noted troponin I is serially been negative x4 at least. Echo: Is a Suboptimal Study, and a Difficult Study. Probably No Definite Wall Motion Abnormality. No Significant Regurgitant Lesions. Please See Report on Chart.. IMPRESSION/RECOMMENDATION: 1. NON-CARDIAC CHEST WALL PAIN: Clearly musculoskeletal, and not anginal. No acute EKG changes, EKG is within normal limits serially, and negative elevation of troponin. Hence clearly this is noncardiac. 2. Coronary artery disease: History of OR in the past and stent placement. No clear-cut anginal symptoms. Since the patient has to travel back to [place] would recommend decreasing the patient's SUZANNA inhibitor to half the dose, and if the blood pressure permits increase to assess Sorbide mononitrate [Imdur] to 60 mg p.o. daily. Continue aspirin and statins and beta-blockers. Cardiac status is stable. Okay to discharge the patient. 3. Hypertension: Blood pressure in the lower normal side. But the patient's without any symptoms of hypotension. Would recommend decreasing the patient's SUZANNA inhibitor, so that her nitrates can be increased. 3. COPD: No evidence of acute exacerbation. Seems to be mild COPD. Continue her anti-COPD medication. 4. Hyperlipidemia: Vision is good lipid levels except her HDL is low. Continue statins. 5. Past history of pulmonary embolism: There is no recurrence this admission. Her medications have been reviewed. Medication adjustment discussed with the hospitalist taking care of the patient. Management plan discussed with the patient the patient and the son no to get in touch with the general accounting manager as soon as they get back to [place], to see if he wants to do nuclear stress test of the patient. The echo findings were discussed with the patient and patient's son. Medical decision making is of moderate complexity. Cardiac status is stable we will sign off
== END 2018-09-22 13:31 | disposition home or self-care (01) ==
LOC: ER 07:18 → EH 12:17 → 4S 13:44
PROVIDERS: ADMIT Internal Medicine; ATTEND Internal Medicine
DX: R07.89 Other chest pain (principal); F32.9 Major depressive disorder, single episode, unspecified; I25.10 Atherosclerotic heart disease of native coronary artery without angina pectoris; R51 Headache; R06.02 Shortness of breath; R11.0 Nausea; R61 Generalized hyperhidrosis; J44.9 Chronic obstructive pulmonary disease, unspecified; R01.1 Cardiac murmur, unspecified; E78.5 Hyperlipidemia, unspecified; J30.2 Other seasonal allergic rhinitis; K21.9 Gastro-esophageal reflux disease without esophagitis; I10 Essential (primary) hypertension; R79.1 Abnormal coagulation profile; M54.9 Dorsalgia, unspecified; R06.2 Wheezing; R91.1 Solitary pulmonary nodule; I25.2 Old myocardial infarction; Z95.5 Presence of coronary angioplasty implant and graft; Z86.711 Personal history of pulmonary embolism; Z79.02 Long term (current) use of antithrombotics/antiplatelets; Z79.899 Other long term (current) drug therapy; Z98.51 Tubal ligation status; Z82.49 Family history of ischemic heart disease and other diseases of the circulatory system; Z87.891 Personal history of nicotine dependence
CPT/HCPCS: 93005 ×3; 96376; 99285; 96374; 96375; 36415 ×2; 82553 ×2; 82550; 85025 ×2; 80053; 81001; 84484 ×2; 80307; 85379; 80061; 93306; 71045; 71275; 93010 ×2; G0378 ×3; A9270 ×20; J3490 ×2; J2270; J1650 ×3; J1170; J2405; J7030